=== PATIENT | female | born 1990 | race African-American/Black ===

== ENCOUNTER 2017-04-29 12:00 | Emergency (ER) | payer BC ==
[2010-12-27 09:47] VITALS: BMI 25.0
== END 2017-04-29 14:18 | disposition home or self-care (01) ==
LOC: D.ER 12:00
DX: S29.012A Strain of muscle and tendon of back wall of thorax, initial encounter (principal); V43.52XA Car driver injured in collision with other type car in traffic accident, initial encounter; Y93.89 Activity, other specified; Y92.410 Unspecified street and highway as the place of occurrence of the external cause

== ENCOUNTER 2018-01-17 16:48 | Emergency (ER) | payer MEDICAID ==
[~2018-01-17] VITALS: Ht 152.4 cm; Wt 70.0 kg
[2018-01-17 16:56] VITALS: Ht 152.4 cm; Wt 70.0 kg
[2018-01-17] MEDS ORDERED: TORADOL10 MG PO (20:31)
[2018-01-17 20:44] VITALS: BP 108/56
== END 2018-01-17 20:45 | disposition home or self-care (01) ==
LOC: D.ER 16:48
DX: S16.1XXA Strain of muscle, fascia and tendon at neck level, initial encounter (principal); V43.52XA Car driver injured in collision with other type car in traffic accident, initial encounter; Y93.89 Activity, other specified; Y92.410 Unspecified street and highway as the place of occurrence of the external cause; S46.819A Strain of other muscles, fascia and tendons at shoulder and upper arm level, unspecified arm, initial encounter